=== PATIENT | female | born 1945 | race Caucasian/White ===

== ENCOUNTER 2018-01-05 03:14 | Emergency (ER) | payer MEDICARE, MEDICAID ==
[~2018-01-05] VITALS: Ht 142.2 cm; Wt 55.4 kg
[~2018-01-05 03:14] MED LIST: ADV50250 IH; ALBU2.5V10 INH; ALEN70TA48 PO; CALC250T2 PO; CARV3.125 PO; CELE-193 PO; CHOL10002 PO; CLOP75TA35 PO; DILT180C PO; DIPH-423 PO; ERGO500014 PO; ESOM40CA PO; FENO145T38 PO; ISOS30TA6 PO; LANTUS SQ; MONT10TA21 PO; NAPR220C15 PO; NITR0.4T51 SL; OMEG1CAP PO; ROSU10TA PO; TRAZ-143 PO; VITC500T PO
[2018-01-05 04:07] LABS: CLARITY,URINE SLIGHTLY CLOUDY (Clear); COLOR,URINE YELLOW (Yellow); GLUCOSE, URINE >=1000 mg/dl (Neg); KETONES,URINE NEGATIVE (Neg); LEUKOCYTE ESTERASE ,URINE NEGATIVE (Neg); NITRITES, URINE NEGATIVE (Neg); OCCULT BLOOD,URINE NEGATIVE (Neg); PH,URINE 5.5 (4.8-8.0); PROTEIN,URINE NEGATIVE (Neg); UROBILINOGEN,URINE 0.2 E.U/dL (0.2-1.0)
[2018-01-05 04:10] LABS: UA COLLECTION TYPE CLN CATCH MIDSTREAM
[2018-01-05 04:21] LABS: BACTERIA,URINE 4+ /HPF (Neg); MUCUS STRANDS NONE SEEN /LPF (Neg); RBC,URINE NONE SEEN /HPF (0-2); SQUAMOUS EPITHELIAL CELL,UR FEW /LPF (FEW); WBC,URINE 50-100 /HPF (0-4)
[2018-01-05 04:22] LABS: WBC CLUMPS,URINE MODERATE /HPF (NEGATIVE)
[2018-01-05 06:33] VITALS: BP 144/67
[2018-01-05] MEDS ORDERED: NITR100C6 PO (07:01)
[2018-01-05] MEDS ORDERED: nitrofuran/nitrofuran macrocrysal 100 MG capsule PO ONE (07:05)
== END 2018-01-05 07:16 | disposition home or self-care (01) ==
LOC: ER 03:15
DX: N39.0 Urinary tract infection, site not specified (principal); E11.65 Type 2 diabetes mellitus with hyperglycemia; J06.9 Acute upper respiratory infection, unspecified; I25.10 Atherosclerotic heart disease of native coronary artery without angina pectoris; E78.00 Pure hypercholesterolemia, unspecified; I10 Essential (primary) hypertension; J44.9 Chronic obstructive pulmonary disease, unspecified; K21.9 Gastro-esophageal reflux disease without esophagitis; G89.29 Other chronic pain; Z90.710 Acquired absence of both cervix and uterus; Z90.49 Acquired absence of other specified parts of digestive tract; Z88.6 Allergy status to analgesic agent; Z88.5 Allergy status to narcotic agent; Z88.0 Allergy status to penicillin; Z79.4 Long term (current) use of insulin; Z56.0 Unemployment, unspecified
CPT/HCPCS: 81001; 82948; 87077; 87088; 87186; 99284

== ENCOUNTER 2018-01-07 22:22 | Emergency (ER) | payer MEDICARE, MEDICAID ==
[~2018-01-07] VITALS: Ht 142.2 cm; Wt 56.0 kg
[~2018-01-07 22:22] MED LIST changes: +NITR100C6 PO
[2018-01-07 22:54] VITALS: BP 165/97
[2018-01-08] MEDS ORDERED: OXYC-145 PO (00:39)
[2018-01-08] MEDS ORDERED: oxyCODONE/APAP 5-325mg tablet PO ONE (00:40)
== END 2018-01-08 01:06 | disposition home or self-care (01) ==
LOC: ER 22:23
DX: S52.501A Unspecified fracture of the lower end of right radius, initial encounter for closed fracture (principal); I10 Essential (primary) hypertension; I25.10 Atherosclerotic heart disease of native coronary artery without angina pectoris; G89.29 Other chronic pain; E11.9 Type 2 diabetes mellitus without complications; E78.00 Pure hypercholesterolemia, unspecified; K21.9 Gastro-esophageal reflux disease without esophagitis; J44.9 Chronic obstructive pulmonary disease, unspecified; M19.90 Unspecified osteoarthritis, unspecified site; Z90.710 Acquired absence of both cervix and uterus; Z90.49 Acquired absence of other specified parts of digestive tract; Z88.0 Allergy status to penicillin; Z88.5 Allergy status to narcotic agent; Z88.6 Allergy status to analgesic agent; Z88.1 Allergy status to other antibiotic agents; Z88.8 Allergy status to other drugs, medicaments and biological substances; Z79.4 Long term (current) use of insulin; Z79.899 Other long term (current) drug therapy; W01.0XXA Fall on same level from slipping, tripping and stumbling without subsequent striking against object, initial encounter; Y93.89 Activity, other specified; Y92.090 Kitchen in other non-institutional residence as the place of occurrence of the external cause; Y99.8 Other external cause status
CPT/HCPCS: 73110; 99284

== ENCOUNTER 2018-01-13 13:03 | Outpatient (CLI) | payer MEDICARE, MEDICAID ==
[~2018-01-13 13:03] MED LIST changes: +OXYC-145 PO
[2018-01-13 13:19] VITALS: BP 113/68
== END 2018-01-13 13:54 | disposition home or self-care (01) ==
LOC: ORTHO 13:03
PROVIDERS: ATTEND Nurse Practitioner Family
DX: S52.501A Unspecified fracture of the lower end of right radius, initial encounter for closed fracture (principal); I10 Essential (primary) hypertension; E11.9 Type 2 diabetes mellitus without complications; J44.9 Chronic obstructive pulmonary disease, unspecified; K21.9 Gastro-esophageal reflux disease without esophagitis; I25.10 Atherosclerotic heart disease of native coronary artery without angina pectoris; G89.29 Other chronic pain; E78.00 Pure hypercholesterolemia, unspecified; Z87.891 Personal history of nicotine dependence; Z88.0 Allergy status to penicillin; Z88.5 Allergy status to narcotic agent; Z88.6 Allergy status to analgesic agent; Z87.442 Personal history of urinary calculi; Z90.710 Acquired absence of both cervix and uterus; X58.XXXA Exposure to other specified factors, initial encounter; Y93.89 Activity, other specified; Y92.89 Other specified places as the place of occurrence of the external cause; Y99.8 Other external cause status
CPT/HCPCS: 29075; 99213; A4590

== ENCOUNTER 2018-01-22 09:28 | Outpatient (CLI) | payer MEDICARE, MEDICAID ==
[2018-01-22 09:41] VITALS: BP 113/67
== END 2018-01-22 10:50 | disposition home or self-care (01) ==
LOC: ORTHO 09:28
PROVIDERS: ATTEND Nurse Practitioner Family
DX: S52.571D Other intraarticular fracture of lower end of right radius, subsequent encounter for closed fracture with routine healing (principal); S52.611D Displaced fracture of right ulna styloid process, subsequent encounter for closed fracture with routine healing; E11.9 Type 2 diabetes mellitus without complications; E78.00 Pure hypercholesterolemia, unspecified; G89.29 Other chronic pain; I10 Essential (primary) hypertension; I25.10 Atherosclerotic heart disease of native coronary artery without angina pectoris; K21.9 Gastro-esophageal reflux disease without esophagitis; Z87.442 Personal history of urinary calculi; Z88.0 Allergy status to penicillin; Z88.5 Allergy status to narcotic agent; Z88.6 Allergy status to analgesic agent; W01.0XXD Fall on same level from slipping, tripping and stumbling without subsequent striking against object, subsequent encounter
CPT/HCPCS: 73110; 99213; A4590

== ENCOUNTER 2018-02-11 10:36 | Outpatient (CLI) | payer MEDICARE, MEDICAID ==
[2018-02-11 10:57] VITALS: BP 80/53
== END 2018-02-11 11:34 | disposition home or self-care (01) ==
LOC: ORTHO 10:36
PROVIDERS: ATTEND Nurse Practitioner Family
DX: S52.501G Unspecified fracture of the lower end of right radius, subsequent encounter for closed fracture with delayed healing (principal); E11.9 Type 2 diabetes mellitus without complications; G89.29 Other chronic pain; E78.00 Pure hypercholesterolemia, unspecified; I25.10 Atherosclerotic heart disease of native coronary artery without angina pectoris; I10 Essential (primary) hypertension; K21.9 Gastro-esophageal reflux disease without esophagitis; M81.0 Age-related osteoporosis without current pathological fracture; Z87.442 Personal history of urinary calculi; Z88.0 Allergy status to penicillin; Z88.5 Allergy status to narcotic agent; Z88.6 Allergy status to analgesic agent; W01.0XXD Fall on same level from slipping, tripping and stumbling without subsequent striking against object, subsequent encounter
CPT/HCPCS: 73110; 99213

== ENCOUNTER 2018-02-23 13:32 | Emergency (ER) | payer MEDICARE, MEDICAID ==
[~2018-02-23] VITALS: Ht 142.2 cm; Wt 54.2 kg
[2018-02-23 13:39] VITALS: BP 134/81
== END 2018-02-23 14:40 | disposition home or self-care (01) ==
LOC: ER 13:33
DX: M25.531 Pain in right wrist (principal); I25.10 Atherosclerotic heart disease of native coronary artery without angina pectoris; E78.00 Pure hypercholesterolemia, unspecified; I10 Essential (primary) hypertension; J44.9 Chronic obstructive pulmonary disease, unspecified; K21.9 Gastro-esophageal reflux disease without esophagitis; E11.9 Type 2 diabetes mellitus without complications; M19.90 Unspecified osteoarthritis, unspecified site; G89.29 Other chronic pain; Z87.442 Personal history of urinary calculi; Z56.0 Unemployment, unspecified; Z90.710 Acquired absence of both cervix and uterus; Z90.49 Acquired absence of other specified parts of digestive tract; Z98.890 Other specified postprocedural states; Z88.0 Allergy status to penicillin; Z88.5 Allergy status to narcotic agent; Z88.8 Allergy status to other drugs, medicaments and biological substances; Z79.4 Long term (current) use of insulin; Z79.899 Other long term (current) drug therapy
CPT/HCPCS: 73110; 73130; 99284

== ENCOUNTER 2018-02-25 11:39 | Outpatient (CLI) | payer MEDICARE, MEDICAID ==
[2018-02-25 12:31] VITALS: BP 121/78
== END 2018-02-25 12:35 | disposition home or self-care (01) ==
LOC: ORTHO 11:39
PROVIDERS: ATTEND Nurse Practitioner Family
DX: S52.501G Unspecified fracture of the lower end of right radius, subsequent encounter for closed fracture with delayed healing (principal); I25.10 Atherosclerotic heart disease of native coronary artery without angina pectoris; E78.00 Pure hypercholesterolemia, unspecified; I10 Essential (primary) hypertension; K21.9 Gastro-esophageal reflux disease without esophagitis; E11.9 Type 2 diabetes mellitus without complications; G89.29 Other chronic pain; Z88.0 Allergy status to penicillin; Z88.5 Allergy status to narcotic agent; Z88.8 Allergy status to other drugs, medicaments and biological substances; Z86.2 Personal history of diseases of the blood and blood-forming organs and certain disorders involving the immune mechanism; X58.XXXD Exposure to other specified factors, subsequent encounter
CPT/HCPCS: 99212; A6449

== ENCOUNTER 2018-03-04 13:08 | Outpatient (CLI) | payer MEDICARE, MEDICAID | END 2018-03-04 13:50 | disposition home or self-care (01) | LOC: ORTHO 13:08 | PROVIDERS: ATTEND Nurse Practitioner Family | DX: S52.591G Other fractures of lower end of right radius, subsequent encounter for closed fracture with delayed healing (principal); I10 Essential (primary) hypertension; I25.10 Atherosclerotic heart disease of native coronary artery without angina pectoris; E78.00 Pure hypercholesterolemia, unspecified; K21.9 Gastro-esophageal reflux disease without esophagitis; D64.9 Anemia, unspecified; E11.9 Type 2 diabetes mellitus without complications; Z88.0 Allergy status to penicillin; Z88.8 Allergy status to other drugs, medicaments and biological substances; Z87.891 Personal history of nicotine dependence; X58.XXXD Exposure to other specified factors, subsequent encounter | CPT/HCPCS: 73110 ==

== ENCOUNTER 2018-03-26 13:53 | Outpatient (CLI) | payer MEDICARE, MEDICAID | END 2018-03-26 14:27 | disposition home or self-care (01) | LOC: ORTHO 13:53 | PROVIDERS: ATTEND Nurse Practitioner Family | DX: S52.591G Other fractures of lower end of right radius, subsequent encounter for closed fracture with delayed healing (principal); M85.88 Other specified disorders of bone density and structure, other site; I25.10 Atherosclerotic heart disease of native coronary artery without angina pectoris; E78.00 Pure hypercholesterolemia, unspecified; I10 Essential (primary) hypertension; K21.9 Gastro-esophageal reflux disease without esophagitis; Z88.0 Allergy status to penicillin; Z88.5 Allergy status to narcotic agent; Z88.8 Allergy status to other drugs, medicaments and biological substances; Z86.2 Personal history of diseases of the blood and blood-forming organs and certain disorders involving the immune mechanism; Z56.0 Unemployment, unspecified; X58.XXXD Exposure to other specified factors, subsequent encounter | CPT/HCPCS: 73110; 99213 ==

== ENCOUNTER 2018-04-09 14:55 | Outpatient (CLI) | payer MEDICARE, MEDICAID | END 2018-04-09 16:01 | disposition home or self-care (01) | LOC: ORTHO 14:55 | PROVIDERS: ATTEND Nurse Practitioner Family | DX: S52.591D Other fractures of lower end of right radius, subsequent encounter for closed fracture with routine healing (principal); S52.611D Displaced fracture of right ulna styloid process, subsequent encounter for closed fracture with routine healing; M79.89 Other specified soft tissue disorders; I25.10 Atherosclerotic heart disease of native coronary artery without angina pectoris; E78.00 Pure hypercholesterolemia, unspecified; I10 Essential (primary) hypertension; K21.9 Gastro-esophageal reflux disease without esophagitis; E11.9 Type 2 diabetes mellitus without complications; J44.9 Chronic obstructive pulmonary disease, unspecified; G89.29 Other chronic pain; Z86.2 Personal history of diseases of the blood and blood-forming organs and certain disorders involving the immune mechanism; Z56.0 Unemployment, unspecified; Z88.5 Allergy status to narcotic agent; Z88.0 Allergy status to penicillin; Z88.8 Allergy status to other drugs, medicaments and biological substances; X58.XXXD Exposure to other specified factors, subsequent encounter | CPT/HCPCS: 73110; 99213 ==

== ENCOUNTER 2018-05-07 13:39 | Outpatient (CLI) | payer MEDICARE, MEDICAID ==
[2018-05-07 13:38] VITALS: BP 124/81
[~2018-05-07 13:39] MED LIST changes: -TRAZ-143 PO; +TRAZ-218 PO
== END 2018-05-07 14:45 | disposition home or self-care (01) ==
LOC: ORTHO 13:39
PROVIDERS: ATTEND Nurse Practitioner Family
DX: S52.501D Unspecified fracture of the lower end of right radius, subsequent encounter for closed fracture with routine healing (principal); S52.202D Unspecified fracture of shaft of left ulna, subsequent encounter for closed fracture with routine healing; I25.10 Atherosclerotic heart disease of native coronary artery without angina pectoris; E78.00 Pure hypercholesterolemia, unspecified; I10 Essential (primary) hypertension; K21.9 Gastro-esophageal reflux disease without esophagitis; J44.9 Chronic obstructive pulmonary disease, unspecified; E11.9 Type 2 diabetes mellitus without complications; G89.29 Other chronic pain; Z86.2 Personal history of diseases of the blood and blood-forming organs and certain disorders involving the immune mechanism; Z88.5 Allergy status to narcotic agent; Z88.0 Allergy status to penicillin; Z88.1 Allergy status to other antibiotic agents; Z88.8 Allergy status to other drugs, medicaments and biological substances; Z56.0 Unemployment, unspecified; Z95.5 Presence of coronary angioplasty implant and graft; Z90.710 Acquired absence of both cervix and uterus; Z87.891 Personal history of nicotine dependence; W01.0XXD Fall on same level from slipping, tripping and stumbling without subsequent striking against object, subsequent encounter
CPT/HCPCS: 73110; 99213

== ENCOUNTER 2020-11-26 11:49 | Emergency (ER) | payer MEDICARE, MEDICAID ==
[~2020-11-26] VITALS: Ht 142.2 cm; Wt 52.6 kg
[~2020-11-26 11:49] MED LIST changes: -ALEN70TA48 PO; +ALEN70TA60 PO; +CLOP75TA34 PO; -CLOP75TA35 PO; -DILT180C PO; +DILT180C90 PO; -ISOS30TA6 PO; +ISOS30TA84 PO; -ROSU10TA PO; +ROSU10TA2 PO; -TRAZ-218 PO; +TRAZ-251 PO
[2020-11-26 13:08] LABS: CLARITY,URINE SLIGHTLY CLOUDY (Clear); COLOR,URINE YELLOW (Yellow); GLUCOSE, URINE 250 mg/dl (Neg); KETONES,URINE NEGATIVE (Neg); LEUKOCYTE ESTERASE ,URINE NEGATIVE (Neg); NITRITES, URINE NEGATIVE (Neg); OCCULT BLOOD,URINE MODERATE (Neg); PROTEIN,URINE 100 mg/dl (Neg); UROBILINOGEN,URINE 0.2 E.U/dL (0.2-1.0)
[2020-11-26 13:10] LABS: UA COLLECTION TYPE OTHER
[2020-11-26 13:13] LABS: BASOPHILS % (AUTO) 0.5 % (0-1); EOSINOPHILS # (AUTO) 0.3 X10'3 (0-0.9); EOSINOPHILS % (AUTO) 3.4 % (0-6); HEMATOCRIT 31.6 % (35.0-45.0); HEMOGLOBIN 10.3 g/dl (12.0-16.0); LYMPHOCYTES # (AUTO) 1.9 X10'3 (1.1-4.8); LYMPHOCYTES % (AUTO) 25.3 % (21-51); MEAN CORPUSCULAR HEMOGLOBIN 25.4 PG (27.0-31.0); MEAN CORPUSCULAR HGB CONC 32.6 g/dL (33.0-36.5); MEAN CORPUSCULAR VOLUME 77.9 FL (78-98); MEAN PLATELET VOLUME 8.5 FL (7.4-10.4); MONOCYTES # (AUTO) 0.6 X10'3 (0-0.9); MONOCYTES % (AUTO) 8.5 % (2-12); NEUTROPHILS # (AUTO) 4.7 X10'3 (1.8-7.7); NEUTROPHILS % (AUTO) 62.3 % (42-75); PLATELET COUNT 202 X10'3 (140-440); RED BLOOD COUNT 4.05 X10'6 (4.20-5.60); RED CELL DISTRIBUTION WIDTH 14.9 % (11.5-14.5); WHITE BLOOD COUNT 7.5 X10'3 (4.5-11.0)
[2020-11-26 13:14] LABS: SQUAMOUS EPITHELIAL CELL,UR FEW /LPF (FEW)
[2020-11-26 13:16] LABS: RBC,URINE 50-100 /HPF (0-2); WBC,URINE 0-4 /HPF (0-4)
[2020-11-26 13:17] LABS: BACTERIA,URINE FEW /HPF (Neg)
[2020-11-26 13:31] LABS: ALANINE AMINOTRANSFERASE 18 U/L (12-78); ALBUMIN 3.3 G/DL (3.4-5.0); ALBUMIN/GLOBULIN RATIO 1.1 (1.1-1.5); ALKALINE PHOSPHATASE 47 IU/L (46-116); ANION GAP 10 (8-16); ASPARTATE AMINO TRANSFERASE 12 U/L (10-37); BILIRUBIN,TOTAL 0.3 MG/DL (0.1-1.0); BLOOD UREA NITROGEN 20 MG/DL (7-18); BUN/CREATININE RATIO 22.7 (6.6-38.0); CALCIUM 9.5 MG/DL (8.5-10.1); CHLORIDE 102 MMOL/L (99-107); CREATININE 0.88 MG/DL (0.40-0.90); GLUCOSE 222 MG/DL (70-104); POTASSIUM 4.4 MMOL/L (3.5-5.1); SODIUM 139 MMOL/L (135-145); TOTAL CARBON DIOXIDE 26.9 MMOL/L (24-32); TOTAL PROTEIN 6.2 G/DL (6.4-8.2); eGFR 62 ML/MIN
[2020-11-26 14:07] VITALS: BP 149/75
== END 2020-11-26 14:17 | disposition home or self-care (01) ==
LOC: ER 11:50
DX: I10 Essential (primary) hypertension (principal); R31.9 Hematuria, unspecified; I25.10 Atherosclerotic heart disease of native coronary artery without angina pectoris; E78.00 Pure hypercholesterolemia, unspecified; J44.9 Chronic obstructive pulmonary disease, unspecified; K21.9 Gastro-esophageal reflux disease without esophagitis; Z86.2 Personal history of diseases of the blood and blood-forming organs and certain disorders involving the immune mechanism; G89.29 Other chronic pain; M19.90 Unspecified osteoarthritis, unspecified site; E11.9 Type 2 diabetes mellitus without complications; Z87.442 Personal history of urinary calculi; Z90.49 Acquired absence of other specified parts of digestive tract; Z90.710 Acquired absence of both cervix and uterus; Z98.890 Other specified postprocedural states; Z56.0 Unemployment, unspecified; Z91.041 Radiographic dye allergy status; Z88.0 Allergy status to penicillin; Z88.5 Allergy status to narcotic agent; Z88.8 Allergy status to other drugs, medicaments and biological substances; Z79.899 Other long term (current) drug therapy; Z79.4 Long term (current) use of insulin
CPT/HCPCS: 36415; 80053; 81001; 85025; 93005; 99284

== ENCOUNTER 2022-08-23 12:43 | Inpatient (IN) | payer MEDICARE, MEDICAID ==
[~2022-08-23] VITALS: Ht 154.9 cm; Wt 60.0 kg
[~2022-08-23 12:43] MED LIST changes: -OMEG1CAP PO; +OMEG1CAP61 PO
[2022-08-23] MEDS ORDERED: acetaminophen 325mg tablet PO ONE (14:00)
[2022-08-23 14:47] LABS: BASOPHILS % (AUTO) 0.4 % (0-1); EOSINOPHILS # (AUTO) 0.2 X10'3 (0-0.9); EOSINOPHILS % (AUTO) 1.6 % (0-6); HEMATOCRIT 40.5 % (35.0-45.0); LYMPHOCYTES # (AUTO) 1.4 X10'3 (1.1-4.8); LYMPHOCYTES % (AUTO) 13.3 % (21-51); MEAN CORPUSCULAR HEMOGLOBIN 25.1 PG (27.0-31.0); MEAN CORPUSCULAR HGB CONC 32.1 g/dL (33.0-36.5); MEAN CORPUSCULAR VOLUME 78.3 FL (78-98); MEAN PLATELET VOLUME 8.4 FL (7.4-10.4); MONOCYTES # (AUTO) 0.8 X10'3 (0-0.9); MONOCYTES % (AUTO) 7.2 % (2-12); NEUTROPHILS # (AUTO) 8.1 X10'3 (1.8-7.7); NEUTROPHILS % (AUTO) 77.5 % (42-75); PLATELET COUNT 171 X10'3 (140-440); RED BLOOD COUNT 5.17 X10'6 (4.20-5.60); RED CELL DISTRIBUTION WIDTH 15.6 % (11.5-14.5); WHITE BLOOD COUNT 10.4 X10'3 (4.5-11.0)
[2022-08-23 15:01] LABS: ALANINE AMINOTRANSFERASE 21 U/L (12-78); ALBUMIN/GLOBULIN RATIO 0.9 (1.1-1.5); ALKALINE PHOSPHATASE 59 IU/L (46-116); ANION GAP 5 (8-16); BILIRUBIN,TOTAL 0.5 MG/DL (0.1-1.0); BLOOD UREA NITROGEN 22 MG/DL (7-18); BUN/CREATININE RATIO 29.3 (6.6-38.0); CALCIUM 9.1 MG/DL (8.5-10.1); CHLORIDE 98 MMOL/L (99-107); CREATININE 0.75 MG/DL (0.40-0.90); GLUCOSE 283 MG/DL (70-104); SODIUM 128 MMOL/L (135-145); TOTAL CARBON DIOXIDE 24.9 MMOL/L (24-32); TOTAL PROTEIN 6.4 G/DL (6.4-8.2); eGFR 75 ML/MIN
[2022-08-23 15:02] LABS: ASPARTATE AMINO TRANSFERASE 33 U/L (10-37); POTASSIUM 4.6 MMOL/L (3.5-5.1)
--- NOTE | 2022-08-23 15:12 | NUR ---
C-COLLAR REMOVED PER DR LECHUGA ORDERED
[2022-08-23 15:37] LABS: CLARITY,URINE CLOUDY (Clear); COLOR,URINE STRAW (Yellow); GLUCOSE, URINE >=1000 mg/dl (Neg); KETONES,URINE NEGATIVE (Neg); LEUKOCYTE ESTERASE ,URINE NEGATIVE (Neg); NITRITES, URINE NEGATIVE (Neg); OCCULT BLOOD,URINE SMALL (Neg); PROTEIN,URINE 100 mg/dl (Neg); UROBILINOGEN,URINE 0.2 E.U/dL (0.2-1.0)
[2022-08-23 15:43] LABS: UA COLLECTION TYPE STRAIGHT CATH
[2022-08-23 15:48] LABS: BACTERIA,URINE 4+ /HPF (Neg); MUCUS STRANDS NONE SEEN /LPF (Neg); SQUAMOUS EPITHELIAL CELL,UR FEW /LPF (FEW)
[2022-08-23 15:50] LABS: RBC,URINE 0-2 /HPF (0-2); WBC,URINE 0-4 /HPF (0-4)
[2022-08-23 15:55] LABS: HYALINE CASTS 0-3 /LPF (NEGATIVE)
[2022-08-23] MEDS ORDERED: normal saline 1000ML IV soln IVB ONE (16:55)
[2022-08-23] MEDS ORDERED: bisacodyl 10mg suppository rectal RC PRN (17:10)
[2022-08-23] MEDS ORDERED: diphenhydrAMINE 25mg capsule PO PRN (17:10)
[2022-08-23] MEDS ORDERED: magnesium hydroxide 30ml (MOM) UD suspension PO PRN (17:10)
[2022-08-23] MEDS ORDERED: dextrose 50%-water 50ml dispensing syringe IV PRN ×2 (17:10)
[2022-08-23] MEDS: normal saline 1000ml 1,000 ML IV SCH (17:10)
[2022-08-23] MEDS ORDERED: glucagon, human recombinant 1mg kit SUBCUT PRN (17:10)
[2022-08-23] MEDS ORDERED: potassium Cl 40MEQ/1/2NS 520ml 520 ML IV PRN (17:10)
[2022-08-23] MEDS ORDERED: MESSAGE TO PHARMACY PO ONE (17:10)
[2022-08-23] MEDS ORDERED: magnesium 4gm in 100ml NS 100 ML IV PRN (17:10)
[2022-08-23] MEDS ORDERED: DEXTROSE 15 GM of carb/4 tabs (each vial/BOTTLE has 4 tablets) PO PRN ×2 (17:10)
[2022-08-23] MEDS ORDERED: ondansetron/PF 4mg/2ml inj IV PRN (17:10)
[2022-08-23] MEDS ORDERED: acetaminophen 325mg tablet PO PRN ×2 (17:10)
[2022-08-23] MEDS ORDERED: potassium Cl 20 mEq SR tablet PO PRN ×2 (17:10)
[2022-08-23] MEDS ORDERED: mag hydrox/Alum hydrox/simeth 30ml oral suspension PO PRN (17:10)
[2022-08-23 17:52] LABS: HEMOGLOBIN A1C 12.6 % (4.5-6.2)
[2022-08-23] MEDS: heparin, porcine 5000 units/ml vial SQ SCH (20:00)
[2022-08-23] MEDS: docusate sod 100mg capsule PO SCH (20:00)
[2022-08-23] MEDS: insulin glargine (Lantus) pen - multi-dose SQ SCH (21:00)
[2022-08-24] MEDS ORDERED: oxyCODONE/APAP 5-325mg tablet PO PRN (00:45)
[2022-08-24] MEDS: normal saline 1000ml 1,000 ML IV SCH ×2 (04:56→13:20)
--- NOTE | 2022-08-24 05:55 | NUR ---
patient arrived on unit at/around midnight, meds scheduled for HS not given since the patient not available at that time
[2022-08-24 06:06] VITALS: BP 107/59
[2022-08-24 07:20] LABS: BASOPHILS % (AUTO) 0.3 % (0-1); EOSINOPHILS % (AUTO) 0.3 % (0-6); HEMATOCRIT 37.7 % (35.0-45.0); HEMOGLOBIN 12.4 g/dl (12.0-16.0); LYMPHOCYTES # (AUTO) 1.2 X10'3 (1.1-4.8); LYMPHOCYTES % (AUTO) 11.2 % (21-51); MEAN CORPUSCULAR HEMOGLOBIN 25.4 PG (27.0-31.0); MEAN CORPUSCULAR HGB CONC 32.9 g/dL (33.0-36.5); MEAN CORPUSCULAR VOLUME 77.1 FL (78-98); MEAN PLATELET VOLUME 8.7 FL (7.4-10.4); MONOCYTES # (AUTO) 0.8 X10'3 (0-0.9); MONOCYTES % (AUTO) 7.4 % (2-12); NEUTROPHILS # (AUTO) 8.9 X10'3 (1.8-7.7); NEUTROPHILS % (AUTO) 80.8 % (42-75); PLATELET COUNT 176 X10'3 (140-440); RED BLOOD COUNT 4.89 X10'6 (4.20-5.60); RED CELL DISTRIBUTION WIDTH 15.3 % (11.5-14.5)
[2022-08-24] MEDS: docusate sod 100mg capsule PO SCH ×3 (08:00→20:00)
[2022-08-24] MEDS: K and/or MAG REPLACEMENT MC SCH ×3 (08:00→20:00)
[2022-08-24] MEDS: heparin, porcine 5000 units/ml vial SQ SCH ×2 (08:09→20:00)
[2022-08-24] MEDS: insulin Lispro (HumaLOG) vial - multi-dose SQ SCH ×3 (08:40→19:03)
[2022-08-24 09:17] LABS: ALANINE AMINOTRANSFERASE 22 U/L (12-78); ALBUMIN 2.7 G/DL (3.4-5.0); ALBUMIN/GLOBULIN RATIO 0.8 (1.1-1.5); ALKALINE PHOSPHATASE 56 IU/L (46-116); ANION GAP 8 (8-16); ASPARTATE AMINO TRANSFERASE 23 U/L (10-37); BILIRUBIN,TOTAL 0.4 MG/DL (0.1-1.0); BLOOD UREA NITROGEN 25 MG/DL (7-18); BUN/CREATININE RATIO 25.8 (6.6-38.0); CALCIUM 8.9 MG/DL (8.5-10.1); CHLORIDE 100 MMOL/L (99-107); CHOL/HDL RATIO 5.9 (0.00-4.99); CHOLESTEROL 234 MG/DL (0-200); CREATININE 0.97 MG/DL (0.40-0.90); GLUCOSE 272 MG/DL (70-104); HDL CHOLESTEROL 40 MG/DL (35-60); LDL CHOLESTEROL 139 MG/DL (50-100); MAGNESIUM 1.2 MG/DL (1.5-2.4); PHOSPHORUS 4.7 MG/DL (2.3-4.5); POTASSIUM 4.1 MMOL/L (3.5-5.1); SODIUM 133 MMOL/L (135-145); TOTAL CARBON DIOXIDE 24.6 MMOL/L (24-32); TOTAL PROTEIN 5.9 G/DL (6.4-8.2); TRIGLYCERIDES 185 MG/DL (20-135); eGFR 56 ML/MIN
[2022-08-24] MEDS: magnesium Cl slow-release 64mg tablet PO PRN (11:01)
[2022-08-24] MEDS ORDERED: ASPI-1265 PO (11:33)
[2022-08-24] MEDS ORDERED: LISI20TA28 PO (11:33)
[2022-08-24] MEDS ORDERED: DULA0.75 SQ (11:33)
[2022-08-24 11:40] VITALS: BP 157/95
[2022-08-24] MEDS ORDERED: ICOS1CAP PO (11:50)
--- NOTE | 2022-08-24 12:07 | NUR ---
Noted pt with T2DM, overall poorly controlled with A1c 12.6%. Pt seen at bedside with niece present. Per niece pt sees a physician q 3-6 months at [facility] and states medications were adjusted 4-6 months ago for pt to take Trulicity q week and Metformin and Lantus BID were discontinued by physician. Per niece BG levels are checked q 1-2 weeks with resulting numbers in the 150s, however at one point she maintained a BG log for one month with BG ranges 80-200 mg/dL, which is not consistent with current A1c. Possible that A1c has increased r/t medication adjustment. RD encouraged pt to f/u with physician for further DM management. Niece declined written DM education stating pt won't read it. RD encouraged niece/pt to contact RD if needed. Pt endorses a good appetite and denies food allergies. Per niece pt with difficulty chewing d/t missing teeth and requests soft to chew chopped food, dietary notified. Pt requests no coffee d/t dislike, d/w dietary. Per pt LBM 08/23 just [employer], usually with no constipation or diarrhea unless impacted by dietary intake per niece. Will continue to follow. Recommendations: 1) Continue CHO controlled diet 2) Soft to chew/chop all food per pt/family request 3) Bowel care per rx 4) Scaled weight this admit; subsequent weekly scaled weights Addendum: 08/24/22 at [address] Amended: Links added.
[2022-08-24] MEDS ORDERED: Dulaglutide (Trulicity) 0.75 MG SQ SCH (12:30)
[2022-08-24] MEDS ORDERED: lisinopril 20mg tablet PO SCH (12:30)
[2022-08-24] MEDS: clopidogrel 75mg tablet PO SCH (13:12)
[2022-08-24] MEDS: isosorbide mononitrate 30mg tab.SR.24H PO SCH (13:12)
[2022-08-24 15:04] VITALS: BP 163/86
[2022-08-24] MEDS: oxyCODONE/APAP 5-325mg tablet PO PRN ×2 (15:09→19:56)
[2022-08-24] MEDS: NUT.TX.GLUC.INTOLER,LAC-FR,SOY (GLUCERNA) 237 ML PO SCH (18:00)
[2022-08-24] MEDS ORDERED: ICOSAPENT ETHYL PO SCH (20:00)
[2022-08-24] MEDS: OMEGA-3/DHA/EPA/FISH OIL 1 EACH CAPSULE.DR PO SCH (20:00)
[2022-08-24] MEDS: carVEDilol 3.125mg tablet PO SCH (20:00)
[2022-08-24] MEDS: insulin glargine (Lantus) pen - multi-dose SQ SCH (23:37)
[2022-08-24] MEDS: traZODone 50mg tablet PO SCH (23:49)
[2022-08-24] MEDS: cholecalciferol (vitamin D3) 1,000 unit (25mcg) tablet PO SCH (23:49)
[2022-08-24] MEDS: ascorbic acid 500mg tablet PO SCH (23:49)
[2022-08-24] MEDS: atorvastatin 20mg tablet PO SCH (23:49)
[2022-08-25] MEDS: normal saline 1000ml 1,000 ML IV SCH ×3 (02:00→23:30)
[2022-08-25 03:07] VITALS: BP 169/79
[2022-08-25 07:00] VITALS: BP 145/81
[2022-08-25 07:03] LABS: BASOPHILS % (AUTO) 0.5 % (0-1); EOSINOPHILS # (AUTO) 0.2 X10'3 (0-0.9); EOSINOPHILS % (AUTO) 2.4 % (0-6); HEMATOCRIT 34.2 % (35.0-45.0); HEMOGLOBIN 11.2 g/dl (12.0-16.0); LYMPHOCYTES % (AUTO) 24.8 % (21-51); MEAN CORPUSCULAR HEMOGLOBIN 25.6 PG (27.0-31.0); MEAN CORPUSCULAR HGB CONC 32.6 g/dL (33.0-36.5); MEAN CORPUSCULAR VOLUME 78.4 FL (78-98); MEAN PLATELET VOLUME 8.3 FL (7.4-10.4); MONOCYTES # (AUTO) 0.8 X10'3 (0-0.9); NEUTROPHILS # (AUTO) 5.1 X10'3 (1.8-7.7); NEUTROPHILS % (AUTO) 62.3 % (42-75); PLATELET COUNT 163 X10'3 (140-440); RED BLOOD COUNT 4.36 X10'6 (4.20-5.60); RED CELL DISTRIBUTION WIDTH 15.8 % (11.5-14.5); WHITE BLOOD COUNT 8.3 X10'3 (4.5-11.0)
[2022-08-25 07:41] LABS: ALBUMIN 2.2 G/DL (3.4-5.0); ALBUMIN/GLOBULIN RATIO 0.7 (1.1-1.5); ALKALINE PHOSPHATASE 52 IU/L (46-116); ANION GAP 9 (8-16); ASPARTATE AMINO TRANSFERASE 16 U/L (10-37); BILIRUBIN,TOTAL 0.2 MG/DL (0.1-1.0); BLOOD UREA NITROGEN 25 MG/DL (7-18); BUN/CREATININE RATIO 30.5 (6.6-38.0); CALCIUM 8.9 MG/DL (8.5-10.1); CHLORIDE 103 MMOL/L (99-107); CREATININE 0.82 MG/DL (0.40-0.90); GLUCOSE 157 MG/DL (70-104); MAGNESIUM 1.5 MG/DL (1.5-2.4); PHOSPHORUS 4.1 MG/DL (2.3-4.5); POTASSIUM 3.8 MMOL/L (3.5-5.1); SODIUM 133 MMOL/L (135-145); TOTAL CARBON DIOXIDE 21.2 MMOL/L (24-32); TOTAL PROTEIN 5.4 G/DL (6.4-8.2); eGFR 67 ML/MIN
[2022-08-25 07:58] LABS: ALANINE AMINOTRANSFERASE 15 U/L (12-78)
[2022-08-25] MEDS: K and/or MAG REPLACEMENT MC SCH ×2 (08:00→19:47)
[2022-08-25] MEDS: NUT.TX.GLUC.INTOLER,LAC-FR,SOY (GLUCERNA) 237 ML PO SCH ×3 (08:00→18:00)
[2022-08-25] MEDS: aspirin 81mg tab.chew PO SCH (09:06)
[2022-08-25] MEDS: OMEGA-3/DHA/EPA/FISH OIL 1 EACH CAPSULE.DR PO SCH ×2 (09:07→19:45)
[2022-08-25] MEDS: clopidogrel 75mg tablet PO SCH (09:08)
[2022-08-25] MEDS: carVEDilol 3.125mg tablet PO SCH ×2 (09:09→21:36)
[2022-08-25] MEDS: docusate sod 100mg capsule PO SCH ×2 (09:09→19:45)
[2022-08-25] MEDS: isosorbide mononitrate 30mg tab.SR.24H PO SCH (09:09)
[2022-08-25] MEDS: montelukast 10mg tablet PO SCH (09:11)
[2022-08-25] MEDS: heparin, porcine 5000 units/ml vial SQ SCH ×2 (09:14→19:26)
[2022-08-25] MEDS: insulin Lispro (HumaLOG) vial - multi-dose SQ SCH ×3 (10:16→19:23)
[2022-08-25] MEDS: lisinopril 5mg tablet PO SCH (10:20)
[2022-08-25 11:00] VITALS: BP 138/67
[2022-08-25] MEDS ORDERED: FLU VACC QS2022-23(6MOS UP)/PF 60 MCG/0.5 ML SYRINGE IMVAC ONE (12:00)
[2022-08-25 15:00] VITALS: BP 146/75
[2022-08-25 18:00] VITALS: BP 160/80
--- NOTE | 2022-08-25 18:38 | NUR ---
Problems reprioritized. Patient report given, questions answered & plan of care reviewed with Kevin JENNINGS.
[2022-08-25] MEDS: atorvastatin 20mg tablet PO SCH (21:30)
[2022-08-25] MEDS: ascorbic acid 500mg tablet PO SCH (21:30)
[2022-08-25] MEDS: cholecalciferol (vitamin D3) 1,000 unit (25mcg) tablet PO SCH (21:31)
[2022-08-25] MEDS: traZODone 50mg tablet PO SCH (21:31)
[2022-08-25] MEDS: insulin glargine (Lantus) pen - multi-dose SQ SCH (21:34)
[2022-08-25 22:00] VITALS: BP 148/78
[2022-08-26] MEDS: oxyCODONE/APAP 5-325mg tablet PO PRN (00:18)
[2022-08-26 02:00] VITALS: BP 162/86
[2022-08-26] MEDS: normal saline 1000ml 1,000 ML IV SCH (05:10)
--- NOTE | 2022-08-26 06:42 | NUR ---
Problems reprioritized. Patient report given, questions answered & plan of care reviewed with MICHAELA CAMEJO.
[2022-08-26 06:52] LABS: ALANINE AMINOTRANSFERASE 16 U/L (12-78); ALBUMIN 2.1 G/DL (3.4-5.0); ALBUMIN/GLOBULIN RATIO 0.7 (1.1-1.5); ALKALINE PHOSPHATASE 54 IU/L (46-116); ANION GAP 10 (8-16); ASPARTATE AMINO TRANSFERASE 15 U/L (10-37); BILIRUBIN,TOTAL 0.3 MG/DL (0.1-1.0); BLOOD UREA NITROGEN 25 MG/DL (7-18); BUN/CREATININE RATIO 27.5 (6.6-38.0); CALCIUM 8.7 MG/DL (8.5-10.1); CHLORIDE 104 MMOL/L (99-107); CREATININE 0.91 MG/DL (0.40-0.90); GLUCOSE 174 MG/DL (70-104); MAGNESIUM 1.4 MG/DL (1.5-2.4); PHOSPHORUS 3.9 MG/DL (2.3-4.5); SODIUM 135 MMOL/L (135-145); TOTAL CARBON DIOXIDE 21.3 MMOL/L (24-32); TOTAL PROTEIN 5.3 G/DL (6.4-8.2); eGFR 60 ML/MIN
[2022-08-26 07:00] VITALS: BP 136/72
[2022-08-26 07:03] LABS: BASOPHILS % (AUTO) 0.4 % (0-1); EOSINOPHILS # (AUTO) 0.1 X10'3 (0-0.9); EOSINOPHILS % (AUTO) 1.5 % (0-6); HEMATOCRIT 31.2 % (35.0-45.0); HEMOGLOBIN 10.3 g/dl (12.0-16.0); LYMPHOCYTES # (AUTO) 1.3 X10'3 (1.1-4.8); LYMPHOCYTES % (AUTO) 14.7 % (21-51); MEAN CORPUSCULAR HEMOGLOBIN 25.7 PG (27.0-31.0); MEAN CORPUSCULAR HGB CONC 32.9 g/dL (33.0-36.5); MEAN PLATELET VOLUME 8.6 FL (7.4-10.4); MONOCYTES # (AUTO) 0.9 X10'3 (0-0.9); MONOCYTES % (AUTO) 10.3 % (2-12); NEUTROPHILS # (AUTO) 6.5 X10'3 (1.8-7.7); NEUTROPHILS % (AUTO) 73.1 % (42-75); PLATELET COUNT 137 X10'3 (140-440); RED CELL DISTRIBUTION WIDTH 15.6 % (11.5-14.5); WHITE BLOOD COUNT 8.8 X10'3 (4.5-11.0)
[2022-08-26] MEDS: K and/or MAG REPLACEMENT MC SCH (08:00)
--- NOTE | 2022-08-26 08:21 | NUR ---
Message: RAMESH ON [phone], [phone], MARIANO HAD POSITIVE UA, NO ABX ORDERD? THX
[2022-08-26] MEDS: clopidogrel 75mg tablet PO SCH (08:24)
[2022-08-26] MEDS: magnesium Cl slow-release 64mg tablet PO PRN (08:24)
[2022-08-26] MEDS: aspirin 81mg tab.chew PO SCH (08:25)
[2022-08-26] MEDS: docusate sod 100mg capsule PO SCH (08:25)
[2022-08-26] MEDS: isosorbide mononitrate 30mg tab.SR.24H PO SCH (08:25)
[2022-08-26] MEDS: OMEGA-3/DHA/EPA/FISH OIL 1 EACH CAPSULE.DR PO SCH (08:25)
[2022-08-26] MEDS: lisinopril 5mg tablet PO SCH (08:25)
[2022-08-26] MEDS: carVEDilol 3.125mg tablet PO SCH (08:25)
[2022-08-26] MEDS: heparin, porcine 5000 units/ml vial SQ SCH (08:25)
[2022-08-26] MEDS: NUT.TX.GLUC.INTOLER,LAC-FR,SOY (GLUCERNA) 237 ML PO SCH ×2 (08:28→12:44)
[2022-08-26] MEDS: montelukast 10mg tablet PO SCH (09:03)
[2022-08-26] MEDS: insulin Lispro (HumaLOG) vial - multi-dose SQ SCH ×2 (09:03→12:53)
[2022-08-26 11:00] VITALS: BP 121/66
[2022-08-26] MEDS ORDERED: levoFLOXACIN 500mg tablet PO SCH (11:00)
--- NOTE | 2022-08-26 13:24 | NUR ---
Report called to [address] [facility] at [facility] [phone]. PIV was removed with cannula intact. Tele box was removed and returned to tele box. Patient belongings include phone and phone charger tester, 2 snowmen, and a jacket.
--- NOTE | 2022-08-26 13:38 | NUR ---
called Ean at [facility] to notify her that Fernanda's home med trulicity is in the bag with the snowmen and it needs to be refrigerated. I also put a note on the front of transfer packet.
== END 2022-08-26 14:17 | DRG 155 ==
LOC: ER 12:44 → ED HOLD 17:19 → EDBEDREQ 17:49 → CANBEDREQ 17:50 → PCU 3S 22:20
PROVIDERS: ADMIT Family Medicine; ATTEND Family Medicine
PROC: 2W3FX1Z Immobilization of Left Hand using Splint (ICD-10-PCS; 2022-08-24)
PROC: 3E02340 Introduction of Influenza Vaccine into Muscle, Percutaneous Approach (ICD-10-PCS; principal; 2022-08-25)
DX: S02.2XXA Fracture of nasal bones, initial encounter for closed fracture (principal); E87.1 Hypo-osmolality and hyponatremia; S82.001A Unspecified fracture of right patella, initial encounter for closed fracture; S52.592A Other fractures of lower end of left radius, initial encounter for closed fracture; E11.9 Type 2 diabetes mellitus without complications; Z20.822 Contact with and (suspected) exposure to COVID-19; G89.29 Other chronic pain; K21.9 Gastro-esophageal reflux disease without esophagitis; R04.0 Epistaxis; E78.00 Pure hypercholesterolemia, unspecified; I10 Essential (primary) hypertension; I25.10 Atherosclerotic heart disease of native coronary artery without angina pectoris; S62.102A Fracture of unspecified carpal bone, left wrist, initial encounter for closed fracture; J44.9 Chronic obstructive pulmonary disease, unspecified; Z60.2 Problems related to living alone; M81.0 Age-related osteoporosis without current pathological fracture; Y93.01 Activity, walking, marching and hiking; W01.0XXA Fall on same level from slipping, tripping and stumbling without subsequent striking against object, initial encounter; Q90.9 Down syndrome, unspecified; Z79.02 Long term (current) use of antithrombotics/antiplatelets; Z80.1 Family history of malignant neoplasm of trachea, bronchus and lung; Z80.8 Family history of malignant neoplasm of other organs or systems; Z82.0 Family history of epilepsy and other diseases of the nervous system; Z82.49 Family history of ischemic heart disease and other diseases of the circulatory system; Z87.442 Personal history of urinary calculi; Z87.891 Personal history of nicotine dependence; Z90.710 Acquired absence of both cervix and uterus; Z91.041 Radiographic dye allergy status; Z95.5 Presence of coronary angioplasty implant and graft; Z23 Encounter for immunization; Y92.89 Other specified places as the place of occurrence of the external cause; Y99.8 Other external cause status; Z88.8 Allergy status to other drugs, medicaments and biological substances; Z88.0 Allergy status to penicillin; Z90.49 Acquired absence of other specified parts of digestive tract; Z56.0 Unemployment, unspecified; Z79.899 Other long term (current) drug therapy
CPT/HCPCS: 36415; 70450; 70486; 71045; 72125; 73110; 73564; 80053; 80061; 81001; 82948; 83036; 83735; 84100; 85025; 87077; 87088; 87186; 87811; 90686; 96360; 97110; 97161; 97530; 99285; A4353; G0378; J1644; J1815; J7030